=== PATIENT | male | born 1980 | race African-American/Black ===

== ENCOUNTER 2017-07-01 15:05 | Emergency (ER) | payer MEDICAID, OTHER ==
[~2017-07-01] VITALS: Ht 188 cm; Wt 104.0 kg
[2017-07-01] MEDS ORDERED: METF500T13 PO ×2 (15:15→15:49)
[2017-07-01] MEDS ORDERED: PENI500T PO (15:49)
[2017-07-01 16:01] VITALS: BP 140/81
== END 2017-07-01 16:10 | disposition home or self-care (01) ==
LOC: M ED 15:05
DX: Z76.0 Encounter for issue of repeat prescription (principal); K02.9 Dental caries, unspecified; E11.9 Type 2 diabetes mellitus without complications; Z79.84 Long term (current) use of oral hypoglycemic drugs; Z88.2 Allergy status to sulfonamides; Z88.1 Allergy status to other antibiotic agents